=== PATIENT | male | born 1965 | race Caucasian/White ===

== ENCOUNTER 2021-01-17 22:33 | Emergency (ER) | payer MEDICARE, MEDICAID ==
[~2021-01-17] VITALS: Ht 175 cm; Wt 77.0 kg
[2021-01-18] MEDS ORDERED: TETANUS,DIPTH,PERTUSS P/F (BOOSTRIX) 0.5 ML VIAL IM ONE
--- NOTE | 2021-01-18 00:25 | ED Lower Extremity ---
General Chief Complaint: Lower Extremity Stated Complaint: TOE INJURY Nursing Triage Note: KICKED A CHAIR AROUND 1800. AMBULATED TO ROOM WITH BANDAGE ON TOE. TAKEN NO PAIN MEDICATIONS. DRESSING TAKEN OFF TOE, CLEANED, AND LEFT OPEN TO AIR. NOT ACTIVELY BLEEDING AT THIS TIME. Source: patient History of Present Illness Date Seen by Provider: Jan 17, 2021 Time Seen by Provider: 23:43 Initial Comments PT ARRIVES VIA POV FROM HOME PT C/O RIGHT GREAT TOE PAIN STATES AT 1800 TONIGHT HE KICKED A CHAIR--WAS WEARING TENNIS SHOES AT THE TIME NO PARESTHESIAS OR MOTOR DEFICITS HAS NOT TAKEN ANYTHING FOR PAIN NO PRIOR HISTORY OF INJURY TO THIS TOE LAST TETANUS IS UNKNOWN PT STATES HE LIVES BOTH HERE AND IN [place] PT IS UNEMPLOYED PCP: MARY--HAS ROUTINE APPOINTMENT 01/24/21 Allergies and Home Medications Allergies Coded Allergies: codeine (Verified Allergy, Unknown, 01/18/21) hydrocodone (Verified Allergy, Unknown, 01/18/21) Home Medications Cephalexin 500 Mg Tablet, 500 MG PO QID Prescribed by: DIANNE BHARDWAJ on 01/18/2140 Tramadol HCl 50 Mg Tablet, 50 MG PO Q4H Prescribed by: DIANNE BHARDWAJ on 01/18/2140 Patient Home Medication List Home Medication List Reviewed: Yes Review of Systems Constitutional: no symptoms reported Musculoskeletal: see HPI Skin: no symptoms reported Psychiatric/Neurological: No Symptoms Reported Past Xhgoelv-Jdnodt-Ajjqox Hx Patient Social History Tobacco Use?: Yes Tobacco type used: Cigarettes Smoking Status: Current Everyday Smoker Substance use?: No Alcohol Use?: Yes Alcohol Frequency: Once in a while Past Medical History Surgeries: No Respiratory: No Cardiac: Yes High Cholesterol, Hypertension Neurological: No Genitourinary: No Gastrointestinal: No Musculoskeletal: Yes Arthritis Endocrine: No HEENT: No Cancer: No Psychosocial: No Integumentary: No Blood Disorders: No Physical Exam Vital Signs Vital Signs - First Documented 01/17/21 23:12 Temp 36.9 Pulse 88 Resp 20 B/P (MAP) 153/101 (118) Pulse Ox 98 O2 Delivery Room Air Capillary Refill : Less Than 3 Seconds Height, Weight, BMI Height: '" Weight: lbs. oz. kg; 25.00 BMI Method: General Appearance: WD/WN, no apparent distress Legs: right leg normal inspection Knees: right knee normal inspection Ankles: right ankle normal inspection Feet: right foot other (RIGHT GREAT TOE WITH MILD TO MODERATE SWELLING, VERY TENDER TO PALPATION. UNABLE TO MOVE TOE DUE TO PAIN. SENSATION AND VASCULAR INTACT. DOES HAVE SOME EARLY BRUISING TO ENTIRE TOE. HAS SUBUNGUAL HEMATOMA WITH DRIED BLOOD TO DISTAL NAIL EDGE BUT NO ACTIVE BLEEDING. TOENAIL IS NOT LOOSE AT THIS TIME. 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, no motor/sensory deficits, alert, normal mood/affect, oriented x 3 Skin: normal color, warm/dry, tattoos/piercings Procedures/Interventions Splinting and Joint Reduction : Splints: Post Op Shoe Progress/Results/Core Measures Results/Orders My Orders Orders - DIANNE BHARDWAJ DO Dipht,Pertuss(Acell),Tet Adult (Boostrix (01/18/21 00:00) Toe(S) (01/18/21 00:01) Wound Dressing-Ed (01/18/21 00:42) Post-Op Shoe (01/18/21 00:42) Rx-Cephalexin Capsule (Rx-Keflex Capsule (01/18/21 00:42) Rx-Tramadol Hcl (Rx-Ultram) (01/18/21 00:42) Medications Given in ED Current Medications Medications Dose Ordered Sig/Aquilino Route Start Time Stop Time Status Last Admin Dose Admin Diphtheria/ Tetanus/Acell Pertussis 0.5 ml ONCE ONCE IM 01/18/21 00:00 01/18/21 00:01 DC 01/18/21 00:54 0.5 ML Vital Signs/I&O 01/17/21 01/18/21 23:12 00:57 Temp 36.9 36.9 Pulse 88 78 Resp 20 18 B/P (MAP) 153/101 (118) 136/89 (118) Pulse Ox 98 99 O2 Delivery Room Air Room Air Blood Pressure Mean: 118 Diagnostic Imaging Comments XRAYS RIGHT GREAT TOE--+ TUFT FRACTURE, ALSO AVULSION FRACTURE OF PROXIMAL ASPECT OF DISTAL PHALANX. PENDING RADIOLOGIST REVIEW Reviewed: Reviewed by Me Departure Impression Primary Impression: Fracture of right great toe Additional Impressions: Subungual hematoma of great toe of right foot Vwbyshpcfx-quxcyeapi-qelrinn (DPT) vaccination administered at current visit Disposition: HOME, SELF-CARE Condition: Stable Departure-Patient Inst. Decision time for Depature: 00:35 Referrals: [facility] Patient Instructions: Bruising Under the Nail, Diphtheria and Tetanus Toxoids, and Acellular Pertussis Vaccine, Toe Fracture ED Add. Discharge Instructions: SOAK IN WARM SOAPY WATER OR WARM EPSOM SALTS 2-3 TIMES A DAY ICE TO AREA AT 20 MINUTE INTERVALS ELEVATE FOOT MUCH POSSIBLE WEAR POST OP SHOE AT ALL TIMES FOLLOW UP WITH [facility] NEXT WEEK FOR FURTHER CARE All discharge instructions reviewed with patient and/or family. Voiced understanding. Scripts Cephalexin (Cephalexin) 500 Mg Tablet 500 MG PO QID, #40 TAB Prov: DIANNE BHARDWAJ DO 01/18/21 Tramadol HCl (Ultram) 50 Mg Tablet 50 MG PO Q4H for Pain, #20 TAB Prov: DIANNE BHARDWAJ DO 01/18/21 DIANNE BHARDWAJ DO Jan 18, 2021 00:25
[2021-01-18] MEDS ORDERED: CEPH500T PO (00:41)
[2021-01-18] MEDS ORDERED: TRAM-42 PO (00:41)
[2021-01-18] MEDS ORDERED: RX-CEPHALEXIN (KEFLEX) 250 MG CAP PPK#4 PO STA (00:42)
[2021-01-18 00:57] VITALS: BP 136/89
--- NOTE | 2021-01-18 07:06 | Diagnostic Imaging Report ---
Exam: Right toe radiograph Exam date: 01/16/2021 COMPARISON: None. HISTORY: Right toe pain. TECHNIQUE: 3 views of the right toes. FINDINGS: There appears to be linear cortical irregularity through the distal aspect of the 1st digit distal phalanx. These are best seen on the oblique and lateral views. No other acute fracture or dislocation or destructive osseous process is seen. There is mild soft tissue swelling within the 1st digit. IMPRESSION: Concern for acute fracture of the distal phalanx of the 1st toe. Dictated by: Dictated on workstation # [id number]
== END 2021-01-18 00:57 | disposition home or self-care (01) ==
LOC: ER 22:38
DX: S92.421A Displaced fracture of distal phalanx of right great toe, initial encounter for closed fracture (principal); S90.211A Contusion of right great toe with damage to nail, initial encounter; I10 Essential (primary) hypertension; F17.210 Nicotine dependence, cigarettes, uncomplicated; Z23 Encounter for immunization; W50.1XXA Accidental kick by another person, initial encounter
CPT/HCPCS: 73660; 90715